=== PATIENT | male | born 1945 | race Caucasian/White ===

== ENCOUNTER 2024-02-08 20:11 | Inpatient (IN) ==
[2024-02-08 20:29] LABS: ABS Basophils 0.1 10^3/uL (0.0-0.1); ABS Eosinophils 0.1 10^3/uL (0.0-0.5); ABS Lymphocytes 3.5 10^3/uL (1.0-4.8); ABS Monocytes 0.8 10^3/uL (0.0-1.1); ABS Neutrophils 4.8 10^3/uL (1.5-7.6); ABS Nucleated RBC 0.01 10^3/ul; Eosinophil % 1.4 %; Hematocrit 42.6 % (38-53); Hemoglobin 14.5 g/dL (13.2-16.3); Lymphocyte % 37.6 %; Mean Corpuscular Hemoglobin 33.7 pg (27-33); Mean Corpuscular Hgb Conc 34.2 g/dL (31-36); Mean Corpuscular Volume 98.7 fL (80-97); Mean Platelet Volume 7.6 fL (7.5-11.2); Nucleated Red Blood Cells % 0.1 %/100WBC (0.0-0.8); Platelet Count 173 10^3/uL (150-450); Red Blood Count 4.31 10^6/uL (4.06-5.63); Red Cell Distribution Width 14.1 % (12-17); White Blood Count 9.4 10^3/uL (3.6-10.2)
[2024-02-08] MEDS: Heparin - STEMI 5,000 UNITS/ML 1 ml VIAL IV ONE (20:34)
[2024-02-08] MEDS: Atropine 0.1 MG/ML 10 ml SYR (1 mg) IV ONE (20:34)
[2024-02-08 20:40] LABS: INR 1.09 (0.85-1.14)
[2024-02-08] MEDS: Amiodarone 150 mg IVPREMIX 150 MG/100 ML BAG IV ONE (20:42)
[2024-02-08] MEDS: Amiodarone 360 MG IVPREMIX 360 MG/200 ML BAG IV ONE (20:44)
[2024-02-08] MEDS ORDERED: fentaNYL 100 mcg/2 ml 50 MCG/ML VIAL ONE (20:52)
[2024-02-08] MEDS ORDERED: Midazolam 5 mg/5 ml VIAL 1 mg/ml 5 ml VIAL (5 mg) ONE (20:52)
[2024-02-08] MEDS ORDERED: Heparin 1,000 UNIT/ML 10 ml (10,000 UNITS) CATHLAB/DIALYSIS ONE (20:52)
[2024-02-08] MEDS ORDERED: VERAPAMIL 2.5 MG/ML 2 ML VIAL ** 5 mg/2 ml ONE (20:52)
[2024-02-08] MEDS ORDERED: Iohexol 350 (CONTRAST) 200 ML MDV IV ONE (20:53)
[2024-02-08] MEDS ORDERED: Lidocaine 1% MPF 5 ML VIAL ONE (20:53)
[2024-02-08] MEDS ORDERED: Heparin 2 UNITS/ML 1000 mls 3,000 ML IV ONE (20:53)
[2024-02-08] MEDS ORDERED: nitroGLYCERIN DRIP 25,000 MCG/250 ML BTL ONE (20:53)
[2024-02-08] MEDS: nitroGLYCERIN DRIP 25,000 MCG/250 ML BTL IV SCH (21:00)
[2024-02-08 21:06] LABS: Albumin/Globulin Ratio 1.3 (1-3); Calcium 9.4 mg/dL (8.6-10.3); Creatinine, Serum 1.24 mg/dL (0.67-1.17); Potassium 4.4 mmol/L (3.5-5.0); Total Bilirubin 0.6 mg/dL (0.2-1.0); eGFR CKD-EPI 59.9 (>60)
[2024-02-08] MEDS ORDERED: Bivalirudin 250 MG VIAL ONE (21:22)
[2024-02-08] MEDS ORDERED: Norepinephrine 4 MG/250mL D5W 4,000 MCG/250 ML BAG IV ONE (21:50)
[2024-02-08] MEDS ORDERED: Magnesium Sulfate 2 gm BAG 2 GM/50 ML BAG ONE (22:14)
[2024-02-08] MEDS: NS 0.9% 1000 ml BAG 1,000 ML IV SCH (23:20)
[2024-02-08] MEDS ORDERED: .Amiodarone 24HR ONLY IV Protocol Order Note IV ONE (23:43)
[2024-02-08] MEDS ORDERED: Nicotine PATCH 21 MG/24 HR PATCH TRANSDERM PRN (23:49)
[2024-02-09] MEDS: Amiodarone 360 MG IVPREMIX 360 MG/200 ML BAG IV SCH ×2 (00:03→05:43)
[2024-02-09] MEDS: Lactated Ringers 1000 ml BAG 1,000 ML IV SCH (00:09)
[2024-02-09 04:47] LABS: ABS Lymphocytes 1.1 10^3/uL (1.0-4.8); ABS Monocytes 0.6 10^3/uL (0.0-1.1); ABS Neutrophils 11.1 10^3/uL (1.5-7.6); ABS Nucleated RBC 0.01 10^3/ul; Hematocrit 38.1 % (38-53); Lymphocyte % 8.9 %; Mean Corpuscular Hemoglobin 33.3 pg (27-33); Mean Corpuscular Hgb Conc 34.1 g/dL (31-36); Mean Corpuscular Volume 97.9 fL (80-97); Nucleated Red Blood Cells % 0.1 %/100WBC (0.0-0.8); Platelet Count 145 10^3/uL (150-450); Red Blood Count 3.89 10^6/uL (4.06-5.63); Red Cell Distribution Width 13.9 % (12-17); White Blood Count 12.8 10^3/uL (3.6-10.2)
[2024-02-09 05:21] LABS: High Sens Troponin Baseline > 24000 pg/mL (<20)
[2024-02-09 05:26] LABS: ALT 279 U/L (7-52); AST 570 U/L (13-39); Albumin 3.7 g/dL (3.2-5.2); Albumin/Globulin Ratio 1.4 (1-3); Alkaline Phosphatase 53 U/L (35-149); Anion Gap 6 mmol/L (2-16); Blood Urea Nitrogen 19 mg/dL (6-24); CO2 Carbon Dioxide 25 mmol/L (22-32); Calcium 8.5 mg/dL (8.6-10.3); Chloride 103 mmol/L (101-111); Cholesterol 157 mg/dL; Creatinine, Serum 0.98 mg/dL (0.67-1.17); Globulin 2.7 g/dL (2-4); Glucose 129 mg/dL (70-100); HDL Cholesterol 55.4 mg/dL; LDL Cholesterol 89 mg/dL; Magnesium 2.2 mg/dL (1.9-2.7); Potassium 4.1 mmol/L (3.5-5.0); Sodium 134 mmol/L (135-145); Total Bilirubin 0.4 mg/dL (0.2-1.0); Total Protein 6.4 g/dL (6.4-8.9); Triglycerides 63 mg/dL; eGFR CKD-EPI 79.4 (>60)
[2024-02-09] MEDS: Enoxaparin 40 MG/0.4 ML SYR SUBCUT SCH (08:29)
[2024-02-09] MEDS: Sulfur Hexaflouride MICROSPHR 25 MG VIAL IV PRN (09:13)
[2024-02-09] MEDS: Furosemide 20 mg/2 ml IV VIAL IV ONE (09:18)
[2024-02-10 05:32] LABS: ABS Lymphocytes 1.4 10^3/uL (1.0-4.8); ABS Monocytes 0.9 10^3/uL (0.0-1.1); ABS Neutrophils 11.5 10^3/uL (1.5-7.6); ABS Nucleated RBC 0.01 10^3/ul; Eosinophil % 0.1 %; Hematocrit 36.8 % (38-53); Hemoglobin 12.4 g/dL (13.2-16.3); Lymphocyte % 10.1 %; Mean Corpuscular Hemoglobin 32.6 pg (27-33); Mean Corpuscular Hgb Conc 33.6 g/dL (31-36); Mean Corpuscular Volume 96.8 fL (80-97); Mean Platelet Volume 8.2 fL (7.5-11.2); Platelet Count 120 10^3/uL (150-450); Red Cell Distribution Width 14.1 % (12-17); White Blood Count 13.8 10^3/uL (3.6-10.2)
[2024-02-10 06:26] LABS: Albumin 3.3 g/dL (3.2-5.2); Albumin/Globulin Ratio 1.4 (1-3); Calcium 8.3 mg/dL (8.6-10.3); Creatinine, Serum 0.81 mg/dL (0.67-1.17); Globulin 2.4 g/dL (2-4); Magnesium 1.8 mg/dL (1.9-2.7); Total Protein 5.7 g/dL (6.4-8.9); eGFR CKD-EPI 90.8 (>60)
[2024-02-10] MEDS: Magnesium Sulfate 2 gm BAG 2 GM/50 ML BAG IVPB ONE (09:58)
[2024-02-10 14:44] LABS: ABS Lymphocytes 1.2 10^3/uL (1.0-4.8); ABS Neutrophils 12.7 10^3/uL (1.5-7.6); ABS Nucleated RBC 0.01 10^3/ul; Eosinophil % 0.1 %; Hematocrit 38.5 % (38-53); Hemoglobin 13.3 g/dL (13.2-16.3); Lymphocyte % 7.8 %; Mean Corpuscular Hemoglobin 33.7 pg (27-33); Mean Corpuscular Hgb Conc 34.6 g/dL (31-36); Mean Corpuscular Volume 97.3 fL (80-97); Mean Platelet Volume 8.3 fL (7.5-11.2); Platelet Count 133 10^3/uL (150-450); Red Blood Count 3.96 10^6/uL (4.06-5.63); Red Cell Distribution Width 13.9 % (12-17); White Blood Count 14.9 10^3/uL (3.6-10.2)
[2024-02-10] MEDS: Furosemide 20 mg/2 ml IV VIAL IV ONE (16:19)
[2024-02-11 12:59] VITALS: BP 108/61
== END 2024-02-11 15:00 | disposition home or self-care (01) | DRG 322 ==
LOC: ED 20:11 → ICU 21:04